=== PATIENT | female | born 1950 | race Caucasian/White ===

== ENCOUNTER → 2017-03-11 | Outpatient (CLI) | payer MEDICARE ==
[~2017-03-11] MED LIST: /PROG10CA PO; /WARF25TA OR; ATIV0.5T3 PO; CALCTAB68 PO; COLA50CA3 PO; DIOV320T PO; MULTTAB4 PO; PERCOCET OR; PREV30CA6 PO; TYLE325T5 PO; [UNRECOGNIZED DRUG - CODE] PO; estrogel
[2017-03-11 13:58] LABS: ALBUMIN 3.8 GM/DL (3.2-5.2); ALBUMIN/GLOBULIN RATIO 1.31 (1.00-1.93); ALKALINE PHOSPHATASE 52 U/L (45-117); ALT/SGPT 17 U/L (12-78); ANION GAP 7 MEQ/L (8-16); AST/SGOT 12 U/L (15-37); BILIRUBIN,TOTAL 0.6 MG/DL (0.2-1.0); BLOOD UREA NITROGEN 18 MG/DL (7-18); CALCIUM LEVEL 8.5 MG/DL (8.8-10.2); CARBON DIOXIDE LEVEL 28 MEQ/L (21-32); CHLORIDE LEVEL 105 MEQ/L (98-107); CHOLESTEROL LEVEL 198 MG/DL (<200); CREATININE FOR GFR 0.65 MG/DL (0.55-1.02); GLOMERULAR FILTRATION RATE > 60.0 (>45); GLUCOSE, FASTING 95 MG/DL (80-110); POTASSIUM SERUM 4.3 MEQ/L (3.5-5.1); SODIUM LEVEL 140 MEQ/L (136-145); TOTAL PROTEIN 6.7 GM/DL (6.4-8.2); TRIGLYCERIDES LEVEL 62 MG/DL (<150)
== END ==
LOC: M WUC 08:43
PROVIDERS: ATTEND Physician Assistant
DX: I10 Essential (primary) hypertension (principal); E78.00 Pure hypercholesterolemia, unspecified

== ENCOUNTER → 2017-03-11 | Outpatient (CLI) | payer MEDICARE ==
[2017-03-11 13:34] LABS: BASO % 1.2 % (0.0-1.0); EOS # 0.1 K/mm3 (0.0-0.50); EOS % 2.1 % (0.0-3.0); LARGE UNSTAINED CELL # 0.1 K/mm3 (0.0-0.4); LARGE UNSTAINED CELL % 1.9 % (0.0-4.0); LYMPH # 1.5 K/mm3 (1.5-4.5); LYMPH % 33.2 % (24.0-44.0); MEAN CORPUSCULAR HEMOGLOBIN 31.4 pg (27.0-33.0); MEAN CORPUSCULAR HGB CONC 32.7 g/dl (32.0-36.5); MEAN CORPUSCULAR VOLUME 96.1 fl (80.0-96.0); MONO # 0.2 K/mm3 (0.0-0.8); MONO % 4.7 % (0.0-5.0); NEUTROPHILS # 2.6 K/mm3 (1.8-7.7); NEUTROPHILS % 57.1 % (36.0-66.0); PLATELET COUNT, AUTOMATED 412 k/mm3 (150-450); RED CELL DISTRIBUTION WIDTH 12.5 % (11.5-14.5); WHITE BLOOD COUNT 4.6 K/mm3 (4.0-10.0)
[2017-03-11 14:07] LABS: FREE T4 1.41 NG/DL (0.76-1.46)
== END ==
LOC: M WUC 08:47
PROVIDERS: ATTEND Family Medicine
DX: E78.00 Pure hypercholesterolemia, unspecified (principal); K21.9 Gastro-esophageal reflux disease without esophagitis; M84.462 Pathological fracture, left tibia

== ENCOUNTER → 2017-03-25 | Outpatient (CLI) | payer MEDICARE ==
--- NOTE | 2017-03-25 13:03 | REPMRS ---
Patient History The patient states she has not had a clinical breast exam in over a year. Patient is postmenopausal. Family history of pancreatic cancer in paternal aunt and breast cancer in paternal grandmother. Benign stereotactic core biopsy of the right breast, 2010. Benign cyst aspiration of the left breast. Took hormonal contraceptives for 20 years. Taking estrogen for 15 years. Taking progesterone for 15 years. Digital Woman Screen Mammo: March 25, 2017 - Exam #: [id number] Bilateral CC and MLO view(s) were taken. Technologist: Yamilet Sprague, Technologist Prior study comparison: January 14, 2014, bilateral bilat screen digital mammo, performed at [facility] ([facility]). January 29, 2012, bilateral bilat screen digital mammo, performed at [facility] ([facility]). FINDINGS: The breast tissue is heterogeneously dense. This may lower the sensitivity of mammography. There has been no change in the appearance of the mammogram from the prior studies. There is a moderate amount of residual fibroglandular tissue which is fairly symmetric. There is no interval development of dominant mass, areas of architectural distortion, or clustered microcalcification typical of malignancy. ASSESSMENT: BI-RADS/ACR category 1 mammogram. Negative. Recommendation Routine screening mammogram in 1 year (for women over age 40). This mammogram was interpreted with the aid of an FDA-approved computer-aided dectection system. Electronically Signed By: Lito Ernst MD 03/25/17 [id number]
--- NOTE | 2017-03-26 09:00 | DEXA ---
AP SPINE L1 - L4 1.082 -0.9 0.9 LT FEMUR TOTAL RT FEMUR TOTAL 0.792 -1.7 -0.3 TOTAL BODY TOTAL OTHER DUAL FEMUR FRAX* ASSESSMENT Risk factors: History of adult fracture, currently taking hormone therapies. 10 year probability of fracture Major osteoporotic fracture 22.0 % Hip fracture 4.9 % COMMENTS: Normal bone densitometry of the spine. There is low bone density of the right hip. The density of the spine has increased 6.5% since 01/25/2011. Left hip replacement. The density of the right hip has decreased 9.2% since 01/25/2011. The increased density of the spine does represent a significant change. The decreased density of the right hip does represent a significant change. FOLLOW-UP: Recommendation for the next bone density exam: 2 years. SLIME
== END ==
LOC: M WHC 09:52
PROVIDERS: ATTEND Family Medicine
DX: Z78.0 Asymptomatic menopausal state (principal); Z87.310 Personal history of (healed) osteoporosis fracture; Z12.31 Encounter for screening mammogram for malignant neoplasm of breast; Z79.890 Hormone replacement therapy; Z92.0 Personal history of contraception
CPT/HCPCS: 77080; G0202

== ENCOUNTER 2017-07-03 07:14 | Outpatient (CLI) | payer MEDICARE ==
[~2017-07-03] VITALS: Ht 149.9 cm; Wt 58.1 kg
[~2017-07-03 07:14] MED LIST changes: +ASPI1TAB PO; +CALTCHW5 PO; +DHEA50TA PO; +ESTRGEL TD; +IRBE150T12 PO; +PREV1CAP PO; +VITA100067 PO; +[UNRECOGNIZED DRUG - CODE] PO
[2017-07-03] MEDS ORDERED: NS 1,000 ML IV ONE (07:45)
[2017-07-03] MEDS ORDERED: LIDOCAINE 2% INJ 100 MG/5 ML SDV (FOR ANES.) As Ordered ONE (08:40)
[2017-07-03] MEDS ORDERED: PROPOFOL 200 MG/20 ML VIAL As Ordered ONE (08:40)
--- NOTE | 2017-07-03 09:11 | ROOR ---
Patient Name: Aura Haji Procedure Date: 07/03/2017 8:20 AM Date of : 1950 Age: 66 Room: [facility] Gender: Female Note Status: Finalized Procedure: Colonoscopy Indications: Screening for colorectal malignant neoplasm Providers: Carroll Amezcua Jr, MD Referring MD: Cyndi CALDWELL DO Requesting Provider: Medicines: Propofol per Anesthesia Complications: No immediate complications. Procedure: Pre-Anesthesia Assessment: - Prior to the procedure, a History and Physical was performed, and patient medications and allergies were reviewed. The patient is competent. The risks and benefits of the procedure and the sedation options and risks were discussed with the patient. All questions were answered and informed consent was obtained. Patient identification and proposed procedure were verified by the physician and the nurse in the pre-procedure area and in the procedure room. Mental Status Examination: alert and oriented. Airway Examination: normal oropharyngeal airway and neck mobility. Respiratory Examination: clear to auscultation. CV Examination: normal. ASA Grade Assessment: II - A patient with mild systemic disease. After reviewing the risks and benefits, the patient was deemed in satisfactory condition to undergo the procedure. The anesthesia plan was to use moderate sedation / analgesia (conscious sedation). Immediately prior to administration of medications, the patient was re-assessed for adequacy to receive sedatives. The heart rate, respiratory rate, oxygen saturations, blood pressure, adequacy of pulmonary ventilation, and response to care were monitored throughout the procedure. The physical status of the patient was re-assessed after the procedure. The Colonoscope was introduced through the anus and advanced to the cecum, identified by the ileocecal valve. The colonoscopy was performed without difficulty. The patient tolerated the procedure well. The quality of the bowel preparation was adequate and good. Findings: The perianal and digital rectal examinations were normal. Pertinent negatives include normal sphincter tone, no palpable rectal lesions and no anal lesion or abnormality was detected. The cecum and ileocecal valve appeared normal. A few small and large-mouthed diverticula were found in the descending colon, transverse colon and ascending colon. Multiple small and large-mouthed diverticula were found in the sigmoid colon. A large polyp was found in the recto-sigmoid colon. The polyp was semi-pedunculated. The polyp was removed with a piecemeal technique using a hot snare. Resection and retrieval were complete. To prevent bleeding post-intervention, one hemostatic clip was successfully placed. There was no bleeding at the end of the procedure. Impression: - The cecum and ileocecal valve are normal. - Diverticulosis in the descending colon, in the transverse colon and in the ascending colon. - Diverticulosis in the sigmoid colon. - One large polyp at the recto-sigmoid colon, removed piecemeal using a hot snare. Resected and retrieved. Clip was placed. Recommendation: - Repeat colonoscopy in 1 year for surveillance. Carroll Amezcua MD Carroll Amezcua Jr, MD 07/03/2017 9:11:29 AM This report has been signed electronically. Number of Addenda: 0 Note Initiated On: 07/03/2017 8:20 AM Estimated Blood Loss: Estimated blood loss: none.
[2017-07-03 09:30] VITALS: BP 147/65
== END 2017-07-03 09:56 | disposition home or self-care (01) ==
LOC: M OPP 07:14
PROVIDERS: ATTEND Surgery
DX: Z12.11 Encounter for screening for malignant neoplasm of colon (principal); D12.7 Benign neoplasm of rectosigmoid junction; K57.30 Diverticulosis of large intestine without perforation or abscess without bleeding; I10 Essential (primary) hypertension; R01.1 Cardiac murmur, unspecified; R12 Heartburn; F41.9 Anxiety disorder, unspecified; Z78.0 Asymptomatic menopausal state; R06.02 Shortness of breath; Z96.642 Presence of left artificial hip joint; Z87.442 Personal history of urinary calculi; I34.0 Nonrheumatic mitral (valve) insufficiency; Z79.82 Long term (current) use of aspirin; Z79.899 Other long term (current) drug therapy

== ENCOUNTER → 2018-03-11 | Outpatient (REF) | payer MEDICARE ==
[2018-03-11 15:29] LABS: BASO # 0.1 10^3/uL (0.0-0.2); EOS # 0.1 10^3/uL (0.0-0.50); EOS % 1.6 % (0.0-3.0); HEMATOCRIT 41.8 % (36.0-47.0); HEMOGLOBIN 13.8 g/dl (12.0-15.5); IMMATURE GRANULOCYTE % 0.2 % (0-3.0); LYMPH # 2.2 10^3/uL (1.5-4.5); LYMPH % 38.2 % (24.0-44.0); MEAN CORPUSCULAR HEMOGLOBIN 31.2 pg (27.0-33.0); MEAN CORPUSCULAR VOLUME 94.6 fl (80.0-96.0); MONO # 0.5 10^3/uL (0.0-0.8); MONO % 8.6 % (0.0-5.0); NEUTROPHILS # 2.9 10^3/uL (1.8-7.7); NEUTROPHILS % 50.4 % (36.0-66.0); PLATELET COUNT, AUTOMATED 387 10^3/uL (150-450); RED BLOOD COUNT 4.42 10^6/uL (4.00-5.40); RED CELL DISTRIBUTION WIDTH 13.5 % (11.5-14.5); WHITE BLOOD COUNT 5.8 10^3/uL (4.0-10.0)
[2018-03-11 16:31] LABS: ALBUMIN 3.8 GM/DL (3.2-5.2); ALBUMIN/GLOBULIN RATIO 1.19 (1.00-1.93); ALKALINE PHOSPHATASE 52 U/L (45-117); ALT/SGPT 18 U/L (12-78); ANION GAP 4 MEQ/L (8-16); AST/SGOT 15 U/L (7-37); BILIRUBIN,TOTAL 0.5 MG/DL (0.2-1.0); BLOOD UREA NITROGEN 15 MG/DL (7-18); CALCIUM LEVEL 8.8 MG/DL (8.8-10.2); CARBON DIOXIDE LEVEL 30 MEQ/L (21-32); CHLORIDE LEVEL 108 MEQ/L (98-107); CHOLESTEROL LEVEL 178 MG/DL (<200); CHOLESTEROL RISK RATIO 2.738 (<5); CREATININE FOR GFR 0.64 MG/DL (0.55-1.30); FREE T4 1.32 NG/DL (0.76-1.46); GLOMERULAR FILTRATION RATE > 60.0 (>45); GLUCOSE, FASTING 77 MG/DL (70-100); HDL CHOLESTEROL 65 MG/DL (>40); LDL CHOLESTEROL 102.6 MG/DL (<100); NON-HDL-C 113 MG/DL; POTASSIUM SERUM 4.2 MEQ/L (3.5-5.1); SODIUM LEVEL 142 MEQ/L (136-145); TRIGLYCERIDES LEVEL 52 MG/DL (<150)
== END ==
LOC: M LABDRAW1 11:06
DX: I10 Essential (primary) hypertension (principal); E78.00 Pure hypercholesterolemia, unspecified; K21.9 Gastro-esophageal reflux disease without esophagitis
CPT/HCPCS: 84443

== ENCOUNTER → 2019-01-12 | Outpatient (REF) | payer MEDICARE ==
[2019-01-12 12:50] LABS: BASO # 0.1 10^3/uL (0.0-0.2); BASO % 1.2 % (0.0-1.0); EOS # 0.1 10^3/uL (0.0-0.50); EOS % 1.3 % (0.0-3.0); HEMATOCRIT 42.3 % (36.0-47.0); HEMOGLOBIN 13.8 g/dl (12.0-15.5); LYMPH # 1.9 10^3/uL (1.5-4.5); LYMPH % 31.5 % (24.0-44.0); MEAN CORPUSCULAR HEMOGLOBIN 30.5 pg (27.0-33.0); MEAN CORPUSCULAR HGB CONC 32.6 g/dl (32.0-36.5); MEAN CORPUSCULAR VOLUME 93.4 fl (80.0-96.0); MONO # 0.5 10^3/uL (0.0-0.8); MONO % 8.5 % (0.0-5.0); NEUTROPHILS # 3.4 10^3/uL (1.8-7.7); NEUTROPHILS % 57.3 % (36.0-66.0); PLATELET COUNT, AUTOMATED 400 10^3/uL (150-450); RED BLOOD COUNT 4.53 10^6/uL (4.00-5.40)
[2019-01-12 13:51] LABS: ALBUMIN 3.7 GM/DL (3.2-5.2); ALT/SGPT 18 U/L (12-78); BILIRUBIN,TOTAL 0.6 MG/DL (0.2-1.0); BLOOD UREA NITROGEN 11 MG/DL (7-18); CALCIUM LEVEL 8.6 MG/DL (8.8-10.2); CARBON DIOXIDE LEVEL 26 MEQ/L (21-32); CHLORIDE LEVEL 107 MEQ/L (98-107); CHOLESTEROL LEVEL 180 MG/DL (<200); CHOLESTEROL RISK RATIO 2.608 (<5); CREATININE FOR GFR 0.67 MG/DL (0.55-1.30); GLOMERULAR FILTRATION RATE > 60.0 (>45); GLUCOSE, FASTING 89 MG/DL (70-100); HDL CHOLESTEROL 69 MG/DL (>40); LDL CHOLESTEROL 97 MG/DL (<100); NON-HDL-C 111 MG/DL; POTASSIUM SERUM 4.1 MEQ/L (3.5-5.1); SODIUM LEVEL 142 MEQ/L (136-145); TOTAL PROTEIN 6.7 GM/DL (6.4-8.2); TRIGLYCERIDES LEVEL 69 MG/DL (<150)
== END ==
LOC: M LABDRAW1 10:00
PROVIDERS: ATTEND Family Medicine
DX: K21.9 Gastro-esophageal reflux disease without esophagitis (principal); I10 Essential (primary) hypertension; E78.00 Pure hypercholesterolemia, unspecified

== ENCOUNTER → 2019-01-12 | Outpatient (CLI) | payer MEDICARE ==
--- NOTE | 2019-01-12 11:48 | REPMRS ---
Patient History The patient states she has not had a clinical breast exam in over a year. Patient is postmenopausal. Family history of breast cancer in paternal grandmother, pancreatic cancer in paternal aunt. Benign stereotactic core biopsy of the right breast, 2010. Benign cyst aspiration of the left breast. Took hormonal contraceptives for 20 years. Taking estrogen for 17 years. Taking progesterone for 17 years. Digital Woman Screen Mammo: January 12, 2019 - Exam #: [id number] Bilateral CC and MLO view(s) were taken. Technologist: Yamilet Sprague, Technologist Prior study comparison: March 25, 2017, digital woman screen mammo performed at [facility]. January 14, 2014, bilateral bilat screen digital mammo, performed at [facility] ([facility]). January 29, 2012, bilateral bilat screen digital mammo, performed at [facility] ([facility]). FINDINGS: The breast tissue is heterogeneously dense. This may lower the sensitivity of mammography. There is a needle biopsy marker clip in the right breast. There is a moderate amount of heterogeneously dense fibroglandular tissue which is fairly symmetric. There is no interval development of dominant mass, architectural distortion, or clustered microcalcification typical of malignancy. There has been no change in the appearance of the mammogram from the prior studies. 3-D tomosynthesis shows no additional findings. Assessment: BI-RADS/ACR category 2 mammogram. Benign Findings. Recommendation Routine screening mammogram of both breasts in 1 year (for women over age 40). This patient's Lifetime Breast Cancer RIsk is estimated at 7.8 %. This mammogram was interpreted with the aid of an FDA-approved computer-aided dectection system. Electronically Signed By: Lambert Galindo MD 01/12/19 [id number]
== END ==
LOC: M WHC 10:15
PROVIDERS: ATTEND Family Medicine
DX: Z12.31 Encounter for screening mammogram for malignant neoplasm of breast (principal); Z78.0 Asymptomatic menopausal state; Z92.0 Personal history of contraception; Z92.23 Personal history of estrogen therapy; Z86.018 Personal history of other benign neoplasm; K21.9 Gastro-esophageal reflux disease without esophagitis; I10 Essential (primary) hypertension; E78.00 Pure hypercholesterolemia, unspecified

== ENCOUNTER 2020-06-29 12:23 | Day surgery (SDC) | payer MEDICARE ==
[~2020-06-29 12:23] MED LIST changes: -/PROG10CA PO; -/WARF25TA OR; -ASPI1TAB PO; +ASPI81TA26 PO; +COUM1TAB18 OR; -IRBE150T12 PO; +IRBE150T7 PO; +LIDOCAINE 2% 100MG/5ML SDV (FOR ANES.) ONE; +OXYC1TAB23 OR; -PERCOCET OR; +PROM1CAP PO; +propofoL 200 MG/20 ML VIAL ONE
== END 2020-06-29 13:56 | disposition home or self-care (01) ==
LOC: M SDC 12:23
PROVIDERS: ATTEND Surgery
DX: Z12.11 Encounter for screening for malignant neoplasm of colon (principal); Z86.010 Personal history of colon polyps; K64.1 Second degree hemorrhoids; K64.2 Third degree hemorrhoids; K57.30 Diverticulosis of large intestine without perforation or abscess without bleeding; D12.6 Benign neoplasm of colon, unspecified; Z79.82 Long term (current) use of aspirin; Z79.899 Other long term (current) drug therapy

== ENCOUNTER → 2020-07-11 | Outpatient (CLI) | payer MEDICARE ==
[~2020-07-11] MED LIST changes: -LIDOCAINE 2% 100MG/5ML SDV (FOR ANES.) ONE; -propofoL 200 MG/20 ML VIAL ONE
--- NOTE | 2020-07-12 16:17 | REPMRS ---
Patient History The patient states she has not had a clinical breast exam in over a year. Family history of breast cancer in paternal grandmother, pancreatic cancer in paternal aunt. Benign stereotactic core biopsy of the right breast, 2010. Benign cyst aspiration of the left breast. Took hormonal contraceptives for 20 years. Taking estrogen for 17 years. Taking progesterone for 17 years. Digital Woman Screen Mammo: July 11, 2020 - Exam #: [id number] Bilateral CC and MLO view(s) were taken. Technologist: Deneen Wilson, Technologist Prior study comparison: January 12, 2019, bilateral digital woman screen mammo performed at [facility]. March 25, 2017, digital woman screen mammo performed at [facility]. January 14, 2014, bilateral bilat screen digital mammo, performed at [facility] ([place] FINDINGS: The breast tissue is heterogeneously dense. This may lower the sensitivity of mammography. The Volpara volumetric breast density category is: C. There is a moderate amount of heterogeneously dense fibroglandular tissue which is fairly symmetric. There is no interval development of dominant mass, architectural distortion, or grouped microcalcification typical of malignancy. There has been no change in the appearance of the mammogram from the prior studies. 3-D tomosynthesis shows no additional findings. Assessment: BI-RADS/ACR category 1 mammogram. Negative Mammogram. Recommendation Routine screening mammogram of both breasts in 1 year (for women over age 40). This patient's Lifetime Breast Cancer RIsk is estimated at 7.4 %. This mammogram was interpreted with the aid of an FDA-approved computer-aided dectection system. Electronically Signed By: Lambert Galindo MD 07/12/20 1205
== END ==
LOC: M WHC 12:57
PROVIDERS: ATTEND Family Medicine
DX: Z12.31 Encounter for screening mammogram for malignant neoplasm of breast (principal)

== ENCOUNTER → 2020-09-18 | Outpatient (CLI) | payer MEDICARE ==
--- NOTE | 2020-09-18 12:05 | REP ---
INDICATION: N63.42 LT BREAST LUMP. Family history of breast cancer paternal grandmother. [facility] lifetime risk of breast cancer 7.4%. COMPARISON: 07/11/2020 mammogram as well as other prior exams. TECHNIQUE: MLO and CC views of left breast performed with tomosynthesis. Spot compression views of the retroareolar region are performed at the site of the reported palpable lump, which is marked on the skin. Focused left breast ultrasound also performed in this region. FINDINGS: There is moderately dense fibroglandular tissue again seen in the left breast. There is no mammographic evidence of a mass with no change since prior studies. No clustered microcalcifications are seen. Real-time sonographic evaluation of the left breast is performed at the site of the reported palpable lump in the retroareolar region at 12 o'clock. At that location there is a simple benign cyst 6 mm in diameter with no solid nodule identified. IMPRESSION: BIRADS/ACR category 2 benign. No mammographic abnormality left breast. By ultrasound at the site of the palpable lump, at 12 o'clock in the right retroareolar region, there is a benign simple cyst 6 mm in diameter. This mammogram was interpreted with the aid of an FDA-approved computer-aided detection system. The patient letter being requested is M2. RECOMMENDATION: Repeat screening mammography recommended in June 2021. <Electronically signed by Lito Ernst > 09/18/20 [id number]
== END ==
LOC: M WHC 10:59
PROVIDERS: ATTEND Family Medicine
DX: N63.42 Unspecified lump in left breast, subareolar (principal)
CPT/HCPCS: 76642; 77065; G0279

== ENCOUNTER → 2020-11-20 | Outpatient (CLI) | payer MEDICARE ==
[2020-11-20 13:00] LABS: ALBUMIN 3.8 GM/DL (3.2-5.2); ALT/SGPT 18 U/L (12-78); BILIRUBIN,TOTAL 0.5 MG/DL (0.2-1.0); BLOOD UREA NITROGEN 18 MG/DL (7-18); CARBON DIOXIDE LEVEL 29 MEQ/L (21-32); CHLORIDE LEVEL 110 MEQ/L (98-107); CHOLESTEROL LEVEL 206 MG/DL (<200); CHOLESTEROL RISK RATIO 2.942 (<5); CREATININE FOR GFR 0.63 MG/DL (0.55-1.30); GLOMERULAR FILTRATION RATE > 60.0 (>39); GLUCOSE, FASTING 91 MG/DL (70-100); HDL CHOLESTEROL 70 MG/DL (>40); LDL CHOLESTEROL 123 MG/DL (<100); NON-HDL-C 136 MG/DL; POTASSIUM SERUM 4.2 MEQ/L (3.5-5.1); SODIUM LEVEL 143 MEQ/L (136-145); TOTAL PROTEIN 6.8 GM/DL (6.4-8.2); TRIGLYCERIDES LEVEL 63 MG/DL (<150)
== END ==
LOC: M PLALAB 09:30
PROVIDERS: ATTEND Physician Assistant
DX: E78.00 Pure hypercholesterolemia, unspecified (principal); I10 Essential (primary) hypertension

== ENCOUNTER → 2021-05-19 | Outpatient (CLI) | payer SELFPAY | LOC: M LABSMTC 09:20 | PROVIDERS: ATTEND Pediatrics | DX: Z11.52 Encounter for screening for COVID-19 (principal) ==

== ENCOUNTER → 2021-06-07 | Outpatient (CLI) | payer MEDICARE ==
--- NOTE | 2021-06-07 16:50 | REP ---
INDICATION: POST VIV BLEEDING. COMPARISON: Comparison study is from March 22, 2009.. TECHNIQUE: Transabdominal and transvaginal scanning were performed. FINDINGS: Uterine dimensions are enlarged at 11.1 x 5.6 x 8.5 cm. Endometrial echo is 0.9 cm thick and centrally placed. No free fluid is seen in the cul-de-sac. Visualized bladder curiel are smooth. There are 2 hypoechoic areas in the myometrium measured at 3.1 x 1.7 x 2.0 cm and 2.5 x 2.2 x 2.2 cm. There is a small nabothian cyst. Neither ovary could be visualized transabdominally or transvaginally. No adnexal mass, cyst, or free fluid is seen.. IMPRESSION: Enlarged uterus with thickened endometrium. Rule out endometrial hyperplasia versus neoplasia. Findings consistent with 2 small myometrial fibroids. Otherwise negative. Neither ovary is directly visualized.. <Electronically signed by Lambert Galindo > 06/07/21 [id number]
== END ==
LOC: M RAD 15:40
PROVIDERS: ATTEND Family Medicine
DX: N95.0 Postmenopausal bleeding (principal)

== ENCOUNTER → 2021-06-15 | Outpatient (CLI) | payer MEDICARE, SELFPAY | LOC: M LABSMTC 10:25 | PROVIDERS: ATTEND Pediatrics | DX: Z11.52 Encounter for screening for COVID-19 (principal) ==

== ENCOUNTER → 2021-07-03 | Outpatient (CLI) | payer MEDICARE ==
--- NOTE | 2021-07-03 16:40 | REP ---
INDICATION: PALMAR FASCIAL FIBROMATOSIS DUPUYTREN. COMPARISON: There are no recent priors. TECHNIQUE: Four views each hand FINDINGS: Right hand: The bones are demineralized. Asymmetric intra digital joint space narrowing is seen. There is marginal osteophytosis involving all D IP joints. Marginal osteophyte formation is also seen involving the interphalangeal joint of the 1st digit. Advanced degenerative changes are seen involving the wrist. There is no acute fracture Left hand: The bones are demineralized. Advanced intra digital joint space narrowing is seen throughout. There is marginal osteophytosis involving all D IP joints and the interphalangeal joint of the 1st digit. Advanced chronic changes seen involving the wrist. There is no evidence of an acute fracture. IMPRESSION: Advanced chronic changes bilaterally <Electronically signed by Roger Horner > 07/03/21 [id number]
== END ==
LOC: M RAD 15:25
PROVIDERS: ATTEND Family Medicine
DX: M72.0 Palmar fascial fibromatosis [Dupuytren] (principal); M19.042 Primary osteoarthritis, left hand

== ENCOUNTER → 2021-07-30 | Outpatient (CLI) | payer MEDICARE ==
[~2021-07-30] MED LIST changes: +VITA200016 PO
== END ==
LOC: M LABSMTC 11:21
PROVIDERS: ATTEND Anesthesiology
DX: Z01.812 Encounter for preprocedural laboratory examination (principal); Z20.822 Contact with and (suspected) exposure to COVID-19

== ENCOUNTER 2021-08-03 08:31 | Day surgery (SDC) | payer MEDICARE ==
[~2021-08-03] VITALS: Ht 149.9 cm; Wt 58.9 kg
[~2021-08-03 08:31] MED LIST changes: +LIDOCAINE 1% MDV 20ML VIAL SQ PRN; +LR 1,000 ML IV ONE
[2021-08-03] MEDS ORDERED: KETOROLAC 60MG 2ML VIAL As Ordered ONE (08:38)
[2021-08-03] MEDS ORDERED: MIDAZOLAM INJ 2MG/2ML VIAL (J2250 PER 1MG) As Ordered ONE (08:38)
[2021-08-03] MEDS ORDERED: ONDANSETRON 4MG/2ML VIAL As Ordered ONE (08:38)
[2021-08-03] MEDS ORDERED: LIDOCAINE 2% 100MG/5ML SDV (FOR ANES.) As Ordered ONE (08:38)
[2021-08-03] MEDS ORDERED: propofoL 200 MG/20 ML VIAL As Ordered ONE (08:38)
[2021-08-03] MEDS ORDERED: fentaNYL 100 MCG/2 ML INJECTION (J3010) As Ordered ONE ×2 (08:38→11:13)
[2021-08-03] MEDS ORDERED: dexameTHASONE 4 MG/ML 1ML VIAL (J1100 PER 1MG) As Ordered ONE ×2 (08:38→11:14)
[2021-08-03 08:58] LABS: HEMATOCRIT 43.1 % (36.0-47.0); MEAN CORPUSCULAR HEMOGLOBIN 30.6 pg (27.0-33.0); MEAN CORPUSCULAR HGB CONC 32.5 g/dl (32.0-36.5); MEAN CORPUSCULAR VOLUME 94.3 fl (80.0-96.0); PLATELET COUNT, AUTOMATED 388 10^3/uL (150-450); RED BLOOD COUNT 4.57 10^6/uL (4.00-5.40); WHITE BLOOD COUNT 5.5 10^3/uL (4.0-10.0)
[2021-08-03] MEDS ORDERED: ACETAMINOPHEN 1000MG 100ML IV BTL (OFIRMEV) (J0131 PER 10MG) As Ordered ONE (11:13)
--- NOTE | 2021-08-03 11:54 | ROOPDOC ---
[facility] Report Of Operation Report of Operation DATE OF PROCEDURE: 08/03/21 PREPROCEDURE DIAGNOSES: Postmenopausal bleeding POSTPROCEDURE DIAGNOSES: Same. PROCEDURE PERFORMED: hysteroscopy, D&C SURGEON: Irma Cerna MD ANESTHESIA: GETA. ESTIMATED BLOOD LOSS: Approximately 10 mL. COMPLICATIONS: none. FINDINGS: 5 mm polyp in the right cornual region. Otherwise, normal endometrial cavity. Stenosis of the cervical os. SPECIMENS REMOVED: endometrial curettings PROCEDURE NOTE: A speculum was placed in the vagina. The anterior lip of the cervix was grasped with a tenaculum. The cervix was dilated with tapered dilators, beginning with lacrimal duct probes. A Diagnostic hysteroscope using normal saline as the distention media was placed through the internal os. Visualization of the endometrial cavity revealed the findings noted above. The hysteroscope was removed. Sharp curettage was performed. The hysteroscope was placed back through the internal os. The previously noted endometrial polyp was removed in its entirety. All instruments were removed. Sponge, instrument, and needle counts correct. The patient went to the recovery room in stable condition. IRMA CERNA MD Aug 03, 2021 11:53
[2021-08-03 13:15] VITALS: BP 160/78
== END 2021-08-03 13:30 | disposition home or self-care (01) ==
LOC: M SDC 08:31
PROVIDERS: ATTEND Specialist
DX: N85.01 Benign endometrial hyperplasia (principal); N84.0 Polyp of corpus uteri; I10 Essential (primary) hypertension; K21.9 Gastro-esophageal reflux disease without esophagitis; F41.9 Anxiety disorder, unspecified; Z79.899 Other long term (current) drug therapy; Z79.82 Long term (current) use of aspirin
CPT/HCPCS: 36415; 58558; 85027; 88305; J0131; J1100; J1885; J2250; J2405; J3010

== ENCOUNTER → 2021-08-06 | Outpatient (CLI) | payer MEDICARE ==
[~2021-08-06] MED LIST changes: -LIDOCAINE 1% MDV 20ML VIAL SQ PRN; -LR 1,000 ML IV ONE
--- NOTE | 2021-08-06 12:22 | DEXAMM ---
INDICATION: DISORDER OF BONE/M85.89. COMPARISON: None. TECHNIQUE: Bone density was measured using dual-energy x-ray absorptiometry (DEXA). FINDINGS: AP SPINE L1-L4 BMD 1.150 g/cm2 Young Adult T-Score -0.4 Age Matched Z-Score 1.3. RT FEMUR, TOTAL BMD 0.767 g/cm2 Young Adult T-Score -1.9 Age Matched Z-Score -0.4. RT NECK BMD 0.700 g/cm2 Young Adult T-Score -2.4 Age Matched Z-Score -0.7. IMPRESSION: There is normal bone density of the spine. There is low bone density of the right hip. The density of the spine has increased 17.1% since the initial exam on 03/22/2009. The density of the spine increased 6.3% since most recent exam on 03/25/2017. The density of the right hip has decreased 9.8% since the initial exam on 03/22/2009. The density of the right hip has decreased 3.2% since the most recent exam on 03/25/2017. FOLLOW-UP: Recommendation for the next bone density exam: 2 years. <Electronically signed by Lito Ernst > 08/06/21 [id number]
--- NOTE | 2021-08-06 14:26 | REP ---
INDICATION: BILL SCR MAMMO/Z12.31. COMPARISON: Multiple prior screening examinations, the most recent, 07/11/2020. TECHNIQUE: Digital screening (2D) mammography was performed bilaterally in the CC and MLO projections. Additionally, breast tomosynthesis (3D mammography) was performed bilaterally in the CC and MLO projections. FINDINGS: The patient is a 70-year-old with no personal history of breast cancer. The patient does have a family history of breast cancer in a paternal grandmother. The patient has had a stereotactic biopsy of the right breast and a cyst aspiration of the left breast. Patient states she has not had a clinical breast exam in over 1 year. The Volpara volumetric breast density pattern is C, the breasts are heterogeneously dense, which may obscure small masses.. There is a biopsy clip in the right breast. In the middle 3rd of the right breast, just above and lateral to the nipple, in the upper outer quadrant, there is an area of architectural distortion. The left breast has a stable appearance. IMPRESSION: BIRADS/ACR category 0: Incomplete, need additional imaging evaluation. This patient's Tyrer-Cuzick lifetime breast cancer risk assessment score is 7.0%. This mammogram was interpreted with the aid of an FDA-approved computer-aided detection system The patient letter being requested is M0. RECOMMENDATION: 2D focal compression of the right breast in the CC and MLO orientations, and ultrasound. <Electronically signed by Vishal Rodas > 08/06/21 [id number]
== END ==
LOC: M WHC 10:58
PROVIDERS: ATTEND Family Medicine
DX: Z12.31 Encounter for screening mammogram for malignant neoplasm of breast (principal); M81.0 Age-related osteoporosis without current pathological fracture

== ENCOUNTER → 2021-08-13 | Outpatient (REF) | LOC: M EMP 08:58 | PROVIDERS: ATTEND Family Medicine | DX: Z11.52 Encounter for screening for COVID-19 (principal) ==

== ENCOUNTER → 2021-09-05 | Outpatient (CLI) | payer MEDICARE ==
--- NOTE | 2021-09-05 14:06 | REP ---
INDICATION: RIGHT BREAST ADD VIEWS. COMPARISON: 08/06/2021 as well as other prior exams. TECHNIQUE: Spot compression and tomographic images of the right breast are performed and compared to the recent screening mammogram of 08/06/2021. FINDINGS: The suspected area of architectural distortion compresses out to an unchanged appearance compared to other prior studies dating back to 2019. No persistent nodule or architectural distortion is seen. IMPRESSION: BIRADS/ACR category 1, negative mammogram. No persistent nodule or architectural distortion. This mammogram was interpreted with the aid of an FDA-approved computer-aided detection system. The patient letter being requested is M 1. RECOMMENDATION: Repeat screening mammography recommended 1 year (for women over 40). <Electronically signed by Lito Ernst > 09/05/21 [id number]
== END ==
LOC: M WHC 13:16
PROVIDERS: ATTEND Family Medicine
DX: R92.2 Inconclusive mammogram (principal)
CPT/HCPCS: 77065; G0279

== ENCOUNTER → 2021-10-04 | Outpatient (CLI) | payer MEDICARE, SELFPAY | LOC: M LABSMTC 11:27 | PROVIDERS: ATTEND Pediatrics | DX: Z11.52 Encounter for screening for COVID-19 (principal) ==

== ENCOUNTER → 2021-12-05 | Outpatient (CLI) | payer MEDICARE ==
[2021-12-05 13:18] LABS: BASO # 0.1 10^3/uL (0.0-0.2); BASO % 1.1 % (0.0-1.0); EOS # 0.1 10^3/uL (0.0-0.5); EOS % 1.4 % (0.0-3.0); HEMOGLOBIN 13.7 g/dl (12.0-15.5); LYMPH # 2.1 10^3/uL (1.5-5.0); MEAN CORPUSCULAR HEMOGLOBIN 30.4 pg (27.0-33.0); MEAN CORPUSCULAR HGB CONC 31.9 g/dl (32.0-36.5); MEAN CORPUSCULAR VOLUME 95.6 fl (80.0-96.0); MONO # 0.5 10^3/uL (0.0-0.8); MONO % 8.3 % (2.0-8.0); NEUTROPHILS # 3.5 10^3/uL (1.5-8.5); PLATELET COUNT, AUTOMATED 408 10^3/uL (150-450); WHITE BLOOD COUNT 6.3 10^3/uL (4.0-10.0)
[2021-12-05 15:51] LABS: ALBUMIN 3.9 GM/DL (3.2-5.2); ALT/SGPT 21 U/L (12-78); BILIRUBIN,TOTAL 0.5 MG/DL (0.2-1.0); BLOOD UREA NITROGEN 13 MG/DL (7-18); CALCIUM LEVEL 9.7 MG/DL (8.8-10.2); CARBON DIOXIDE LEVEL 27 MEQ/L (21-32); CHLORIDE LEVEL 108 MEQ/L (98-107); CHOLESTEROL LEVEL 188 MG/DL (<200); CHOLESTEROL RISK RATIO 2.685 (<5); CREATININE FOR GFR 0.69 MG/DL (0.55-1.30); FREE T4 1.37 NG/DL (0.76-1.46); GLOMERULAR FILTRATION RATE > 60.0 (>39); GLUCOSE, FASTING 98 MG/DL (70-100); HDL CHOLESTEROL 70 MG/DL (>40); LDL CHOLESTEROL 105 MG/DL (<100); NON-HDL-C 118 MG/DL; POTASSIUM SERUM 4.2 MEQ/L (3.5-5.1); SODIUM LEVEL 140 MEQ/L (136-145); TOTAL PROTEIN 6.9 GM/DL (6.4-8.2); TRIGLYCERIDES LEVEL 63 MG/DL (<150)
== END ==
LOC: M PLALAB 11:15
PROVIDERS: ATTEND Family Medicine
DX: I10 Essential (primary) hypertension (principal)

== ENCOUNTER → 2022-01-02 | Outpatient (CLI) | payer SELFPAY | LOC: M LABSMTC 11:16 | PROVIDERS: ATTEND Pediatrics | DX: Z11.52 Encounter for screening for COVID-19 (principal) ==

== ENCOUNTER → 2022-06-20 | Outpatient (CLI) | payer MEDICARE ==
[~2022-06-20] MED LIST changes: +PROG100C23 PO; -[UNRECOGNIZED DRUG - CODE] PO
[2022-06-20 16:32] LABS: BASO # 0.1 10^3/uL (0.0-0.2); BASO % 1.1 % (0.0-1.0); EOS # 0.1 10^3/uL (0.0-0.5); EOS % 0.8 % (0.0-3.0); HEMATOCRIT 42.5 % (36.0-47.0); HEMOGLOBIN 13.5 g/dl (12.0-15.5); LYMPH # 2.7 10^3/uL (1.5-5.0); LYMPH % 37.2 % (24.0-44.0); MEAN CORPUSCULAR HEMOGLOBIN 30.2 pg (27.0-33.0); MEAN CORPUSCULAR HGB CONC 31.8 g/dl (32.0-36.5); MEAN CORPUSCULAR VOLUME 95.1 fl (80.0-96.0); MONO # 0.6 10^3/uL (0.0-0.8); MONO % 8.1 % (2.0-8.0); NEUTROPHILS # 3.8 10^3/uL (1.5-8.5); NEUTROPHILS % 52.5 % (36.0-66.0); PLATELET COUNT, AUTOMATED 381 10^3/uL (150-450); RED BLOOD COUNT 4.47 10^6/uL (4.00-5.40); WHITE BLOOD COUNT 7.2 10^3/uL (4.0-10.0)
[2022-06-20 17:56] LABS: ALBUMIN 3.6 GM/DL (3.2-5.2); ALT/SGPT 19 U/L (12-78); BILIRUBIN,TOTAL 0.8 MG/DL (0.2-1.0); BLOOD UREA NITROGEN 13 MG/DL (7-18); CALCIUM LEVEL 9.5 MG/DL (8.8-10.2); CARBON DIOXIDE LEVEL 28 MEQ/L (21-32); CHLORIDE LEVEL 108 MEQ/L (98-107); CHOLESTEROL LEVEL 189 MG/DL (<200); CHOLESTEROL RISK RATIO 2.779 (<5); FREE T4 1.36 NG/DL (0.76-1.46); GLOMERULAR FILTRATION RATE > 60.0 (>39); GLUCOSE, FASTING 91 MG/DL (70-100); HDL CHOLESTEROL 68 MG/DL (>40); LDL CHOLESTEROL 111 MG/DL (<100); NON-HDL-C 121 MG/DL; POTASSIUM SERUM 4.2 MEQ/L (3.5-5.1); SODIUM LEVEL 142 MEQ/L (136-145); TOTAL PROTEIN 6.7 GM/DL (6.4-8.2); TRIGLYCERIDES LEVEL 51 MG/DL (<150)
== END ==
LOC: M WUC 10:57
PROVIDERS: ATTEND Family Medicine
DX: I10 Essential (primary) hypertension (principal); E78.00 Pure hypercholesterolemia, unspecified

== ENCOUNTER → 2022-09-06 | Outpatient (CLI) | payer MEDICARE | LOC: M WHC 10:21 | PROVIDERS: ATTEND Family Medicine | DX: Z12.31 Encounter for screening mammogram for malignant neoplasm of breast (principal); Z79.899 Other long term (current) drug therapy ==

== ENCOUNTER → 2022-09-06 | Outpatient (CLI) | payer MEDICARE ==
[2022-09-06 13:18] LABS: BASO # 0.1 10^3/uL (0.0-0.2); BASO % 0.6 % (0.0-1.0); EOS # 0.1 10^3/uL (0.0-0.5); EOS % 1.3 % (0.0-3.0); HEMATOCRIT 42.7 % (36.0-47.0); HEMOGLOBIN 13.8 g/dl (12.0-15.5); LYMPH # 1.8 10^3/uL (1.5-5.0); LYMPH % 21.1 % (24.0-44.0); MEAN CORPUSCULAR HEMOGLOBIN 31.1 pg (27.0-33.0); MEAN CORPUSCULAR HGB CONC 32.3 g/dl (32.0-36.5); MEAN CORPUSCULAR VOLUME 96.2 fl (80.0-96.0); MONO # 0.7 10^3/uL (0.0-0.8); MONO % 7.9 % (2.0-8.0); NEUTROPHILS # 5.8 10^3/uL (1.5-8.5); NEUTROPHILS % 68.7 % (36.0-66.0); PLATELET COUNT, AUTOMATED 438 10^3/uL (150-450); RED BLOOD COUNT 4.44 10^6/uL (4.00-5.40); WHITE BLOOD COUNT 8.4 10^3/uL (4.0-10.0)
[2022-09-06 14:01] LABS: BLOOD UREA NITROGEN 15 MG/DL (7-18); CALCIUM LEVEL 9.7 MG/DL (8.8-10.2); CARBON DIOXIDE LEVEL 29 MEQ/L (21-32); CHLORIDE LEVEL 106 MEQ/L (98-107); CREATININE FOR GFR 0.72 MG/DL (0.55-1.30); GLOMERULAR FILTRATION RATE > 60.0 (>39); GLUCOSE, FASTING 100 MG/DL (70-100); POTASSIUM SERUM 4.1 MEQ/L (3.5-5.1); SODIUM LEVEL 142 MEQ/L (136-145)
== END ==
LOC: M PLALAB 11:17
PROVIDERS: ATTEND Family Medicine
DX: Z01.818 Encounter for other preprocedural examination (principal)

== ENCOUNTER 2023-01-13 13:21 | Emergency (ER) | payer MEDICARE ==
[2023-01-13 14:28] LABS: BASO # 0.1 10^3/uL (0.0-0.2); BASO % 0.5 % (0.0-1.0); EOS % 0.2 % (0.0-3.0); HEMOGLOBIN 13.3 g/dl (12.0-15.5); LYMPH # 1.4 10^3/uL (1.5-5.0); LYMPH % 11.6 % (24.0-44.0); MEAN CORPUSCULAR HEMOGLOBIN 30.6 pg (27.0-33.0); MEAN CORPUSCULAR HGB CONC 32.4 g/dl (32.0-36.5); MEAN CORPUSCULAR VOLUME 94.5 fl (80.0-96.0); MONO # 0.7 10^3/uL (0.0-0.8); NEUTROPHILS # 9.8 10^3/uL (1.5-8.5); NEUTROPHILS % 81.1 % (36.0-66.0); PLATELET COUNT, AUTOMATED 377 10^3/uL (150-450); RED BLOOD COUNT 4.34 10^6/uL (4.00-5.40); WHITE BLOOD COUNT 12.1 10^3/uL (4.0-10.0)
[2023-01-13 14:51] LABS: LIPASE 36 U/L (12-53)
[2023-01-13 14:52] LABS: CK-MB VALUE MASS 1.1 NG/ML (<3.6); CPK CREATINE PHOSPHOKINASE 91 U/L (34-145)
[2023-01-13 14:53] LABS: ALBUMIN 3.8 G/DL (3.2-5.2); ALKALINE PHOSPHATASE 60 U/L (46-116); ALT/SGPT 25 U/L (7.0-40); AST/SGOT 24 U/L (<34); BILIRUBIN,DIRECT 0.1 MG/DL (<0.4); BILIRUBIN,TOTAL 0.4 MG/DL (0.3-1.2); BLOOD UREA NITROGEN 13 MG/DL (9-23); CALCIUM LEVEL 9.5 MG/DL (8.3-10.6); CARBON DIOXIDE LEVEL 28 MMOL/L (20-31); CHLORIDE LEVEL 107 MMOL/L (98-107); CREATININE FOR GFR 0.61 MG/DL (0.55-1.30); GLOMERULAR FILTRATION RATE > 60.0 (>39); GLUCOSE, FASTING 114 MG/DL (74-106); POTASSIUM SERUM 4.2 MMOL/L (3.5-5.1); SODIUM LEVEL 140 MMOL/L (136-145); TOTAL PROTEIN 6.8 G/DL (5.7-8.2)
[2023-01-13 14:56] LABS: THYROID STIMULATING HORMONE 1.733 uIU/ML (0.55-4.78)
[2023-01-13 14:57] LABS: FREE T4 1.19 NG/DL (0.89-1.76)
[2023-01-13] MEDS ORDERED: ISOVUE-370 76% 100ML VIAL As Ordered ONE (15:49)
[2023-01-13 16:03] LABS: MB/CK RELATIVE INDEX 2.06 (< OR =4)
[2023-01-13 16:45] VITALS: BP 152/74
== END 2023-01-13 17:00 | disposition home or self-care (01) ==
LOC: M ED 13:21
DX: I10 Essential (primary) hypertension (principal); R07.89 Other chest pain; E78.5 Hyperlipidemia, unspecified; Z82.49 Family history of ischemic heart disease and other diseases of the circulatory system; K76.89 Other specified diseases of liver; Z79.82 Long term (current) use of aspirin; Z79.890 Hormone replacement therapy; Z79.899 Other long term (current) drug therapy
CPT/HCPCS: 71045; 71275; 80048; 80076; 82550; 82553; 83690; 83880; 84439; 84443; 84484; 85025; 93005; 93041; 94760; 99285; Q9967

== ENCOUNTER → 2023-12-11 | Outpatient (CLI) | payer MEDICARE ==
[~2023-12-11] MED LIST changes: +IRBE150T27 PO; -IRBE150T7 PO; -PROG100C23 PO; +[UNRECOGNIZED DRUG - CODE] PO
== END ==
LOC: M WHC 09:03
PROVIDERS: ATTEND Family Medicine
DX: Z12.31 Encounter for screening mammogram for malignant neoplasm of breast (principal); M85.80 Other specified disorders of bone density and structure, unspecified site; Z78.0 Asymptomatic menopausal state

== ENCOUNTER → 2024-08-09 | Outpatient (CLI) | payer MEDICARE ==
[2024-08-09 16:47] LABS: BASO # 0.1 10^3/uL (0.0-0.2); BASO % 0.9 % (0.0-1.0); EOS # 0.1 10^3/uL (0.0-0.5); EOS % 1.1 % (0.0-3.0); HEMATOCRIT 41.6 % (36.0-47.0); HEMOGLOBIN 13.5 g/dl (12.0-15.5); LYMPH # 2.2 10^3/uL (1.5-5.0); LYMPH % 30.8 % (24.0-44.0); MEAN CORPUSCULAR HEMOGLOBIN 30.9 pg (27.0-33.0); MEAN CORPUSCULAR HGB CONC 32.5 g/dl (32.0-36.5); MEAN CORPUSCULAR VOLUME 95.2 fl (80.0-96.0); MONO # 0.6 10^3/uL (0.0-0.8); MONO % 8.4 % (2.0-8.0); NEUTROPHILS # 4.1 10^3/uL (1.5-8.5); NEUTROPHILS % 58.4 % (36.0-66.0); PLATELET COUNT, AUTOMATED 415 10^3/uL (150-450); RED BLOOD COUNT 4.37 10^6/uL (4.00-5.40)
[2024-08-09 16:53] LABS: ALBUMIN 3.6 G/DL (3.2-5.2); ALKALINE PHOSPHATASE 71 U/L (46-116); ALT/SGPT 15 U/L (7.0-40); AST/SGOT 18 U/L (<34); BILIRUBIN,TOTAL 0.6 MG/DL (0.3-1.2); BLOOD UREA NITROGEN 13 MG/DL (9-23); CALCIUM LEVEL 9.8 MG/DL (8.3-10.6); CARBON DIOXIDE LEVEL 28 MMOL/L (20-31); CHLORIDE LEVEL 107 MMOL/L (98-107); CHOLESTEROL LEVEL 180 MG/DL (<200); CHOLESTEROL RISK RATIO 3.38 (<5); CREATININE FOR GFR 0.67 MG/DL (0.55-1.30); GLOMERULAR FILTRATION RATE > 60.0 (>39); GLUCOSE, FASTING 87 MG/DL (74-106); HDL CHOLESTEROL 53.1 MG/DL (>40); LDL CHOLESTEROL 112.7 MG/DL (<100); NON-HDL-C 126.9 MG/DL; POTASSIUM SERUM 4.3 MMOL/L (3.5-5.1); SODIUM LEVEL 140 MMOL/L (136-145); TOTAL PROTEIN 6.9 G/DL (5.7-8.2); TRIGLYCERIDES LEVEL 71 MG/DL (<150)
[2024-08-09 16:55] LABS: FREE T4 1.43 NG/DL (0.89-1.76); THYROID STIMULATING HORMONE 1.531 uIU/ML (0.55-4.78)
== END ==
LOC: M WUC 12:26
PROVIDERS: ATTEND Family Medicine
DX: E78.00 Pure hypercholesterolemia, unspecified (principal)

== ENCOUNTER 2024-11-14 21:29 | Emergency (ER) | payer MEDICARE ==
[~2024-11-14] VITALS: Ht 152.4 cm; Wt 57.2 kg
[2024-11-14 21:34] VITALS: TEMP 98.2
[2024-11-14] MEDS: LABETALOL 100MG/20ML VIAL IV STA (22:33)
[2024-11-14 22:43] LABS: BASO # 0.1 10^3/uL (0.0-0.2); BASO % 1.1 % (0.0-1.0); EOS # 0.1 10^3/uL (0.0-0.5); EOS % 1.6 % (0.0-3.0); HEMATOCRIT 41.8 % (36.0-47.0); HEMOGLOBIN 13.8 g/dl (12.0-15.5); LYMPH # 1.8 10^3/uL (1.5-5.0); LYMPH % 23.8 % (24.0-44.0); MEAN CORPUSCULAR HEMOGLOBIN 30.9 pg (27.0-33.0); MEAN CORPUSCULAR VOLUME 93.7 fl (80.0-96.0); MONO # 0.7 10^3/uL (0.0-0.8); MONO % 9.1 % (2.0-8.0); NEUTROPHILS # 4.9 10^3/uL (1.5-8.5); NEUTROPHILS % 64.1 % (36.0-66.0); PLATELET COUNT, AUTOMATED 415 10^3/uL (150-450); RED BLOOD COUNT 4.46 10^6/uL (4.00-5.40); WHITE BLOOD COUNT 7.6 10^3/uL (4.0-10.0)
[2024-11-14 23:14] LABS: BLOOD UREA NITROGEN 11 MG/DL (9-23); CALCIUM LEVEL 9.8 MG/DL (8.3-10.6); CARBON DIOXIDE LEVEL 29 MMOL/L (20-31); CHLORIDE LEVEL 106 MMOL/L (98-107); CK-MB VALUE MASS 1.1 NG/ML (<3.6); CREATININE FOR GFR 0.72 MG/DL (0.55-1.30); GLOMERULAR FILTRATION RATE > 60.0 (>39); GLUCOSE, FASTING 127 MG/DL (74-106); POTASSIUM SERUM 4.1 MMOL/L (3.5-5.1); SODIUM LEVEL 142 MMOL/L (136-145)
[2024-11-14 23:16] LABS: FREE T4 1.43 NG/DL (0.89-1.76); THYROID STIMULATING HORMONE 2.724 uIU/ML (0.55-4.78)
[2024-11-14 23:31] LABS: CPK CREATINE PHOSPHOKINASE 79 U/L (34-145); MB/CK RELATIVE INDEX 1.39 (< OR =4)
[2024-11-15 00:30] VITALS: BP 169/74; O2SAT 96
[2024-11-15] MEDS ORDERED: LABE100T40 PO (00:32)
[2024-11-15 00:40] VITALS: BP 169/74
[2024-11-15] MEDS: LABETALOL 100MG TAB PO ONE (00:40)
== END 2024-11-15 00:45 | disposition home or self-care (01) ==
LOC: M ED 21:29
DX: I16.0 Hypertensive urgency (principal); I44.4 Left anterior fascicular block; I45.10 Unspecified right bundle-branch block; K21.9 Gastro-esophageal reflux disease without esophagitis; F10.10 Alcohol abuse, uncomplicated; Z79.1 Long term (current) use of non-steroidal anti-inflammatories (NSAID); Z79.899 Other long term (current) drug therapy
CPT/HCPCS: 70450; 71045; 80048; 82550; 82553; 84439; 84443; 84484; 85025; 93005; 93041; 94760; 96374; 99285; J1920

== ENCOUNTER → 2024-12-13 | Outpatient (CLI) | payer MEDICARE ==
[~2024-12-13] MED LIST changes: +LABE100T40 PO
== END ==
LOC: M WHC 10:58
PROVIDERS: ATTEND Family Medicine
DX: Z12.31 Encounter for screening mammogram for malignant neoplasm of breast (principal)

== ENCOUNTER → 2025-08-16 | Outpatient (CLI) | payer MEDICARE ==
[2025-08-16 14:00] LABS: BASO # 0.1 10^3/uL (0.0-0.2); BASO % 1.4 % (0.0-1.0); EOS # 0.2 10^3/uL (0.0-0.5); EOS % 2.9 % (0.0-3.0); LYMPH # 1.7 10^3/uL (1.5-5.0); LYMPH % 26.5 % (24.0-44.0); MONO # 0.6 10^3/uL (0.0-0.8); MONO % 8.8 % (2.0-8.0); NEUTROPHILS # 3.8 10^3/uL (1.5-8.5); NEUTROPHILS % 60.1 % (36.0-66.0); PLATELET COUNT, AUTOMATED 446 10^3/uL (150-450)
[2025-08-16 14:36] LABS: ALT/SGPT 15 U/L (7.0-40); AST/SGOT 17 U/L (<34); CALCIUM LEVEL 9.4 MG/DL (8.3-10.6); CARBON DIOXIDE LEVEL 26 MMOL/L (20-31); CHLORIDE LEVEL 105 MMOL/L (98-107); CHOLESTEROL LEVEL 176 MG/DL (<200); CHOLESTEROL RISK RATIO 2.83 (<5); CREATININE FOR GFR 0.64 MG/DL (0.55-1.30); GLOMERULAR FILTRATION RATE > 90.0 (>39); LDL CHOLESTEROL 102.9 MG/DL (<100); NON-HDL-C 113.9 MG/DL; POTASSIUM SERUM 4.4 MMOL/L (3.5-5.1); SODIUM LEVEL 139 MMOL/L (136-145); TRIGLYCERIDES LEVEL 55 MG/DL (<150)
[2025-08-16 14:37] LABS: FREE T4 1.36 NG/DL (0.89-1.76)
== END ==
LOC: M WUC 08-15 14:16
PROVIDERS: ATTEND Family Medicine
DX: I10 Essential (primary) hypertension (principal); E78.00 Pure hypercholesterolemia, unspecified

== ENCOUNTER → 2025-09-07 | Outpatient (CLI) | payer MEDICARE | LOC: M WUC 11:28 | PROVIDERS: ATTEND Family Medicine | DX: M25.561 Pain in right knee (principal) ==